=== PATIENT | female | born 1965 | race Caucasian/White ===

== ENCOUNTER 2018-01-29 16:57 | Emergency (ER) | payer BC ==
[2018-01-29] MEDS ORDERED: diphenhydrAMINE 50 MG/ML SDV IVPUSH ONE (17:34)
[2018-01-29] MEDS ORDERED: Sodium Chloride 0.9% 10 ML Syringe FLUSH PRN (17:34)
[2018-01-29] MEDS ORDERED: methylPREDNISolone Sodium Succinate 125 MG/2 ML SDV IVPUSH ONE (17:34)
--- NOTE | 2018-01-29 18:22 | EDM.PDOC ---
ED HPI GENERAL MEDICAL PROBLEM - General Chief Complaint: Allergic Reaction Stated Complaint: ALLERGY REACTION Time Seen by Provider: 01/29/18 17:22 - History of Present Illness INITIAL COMMENTS - FREE TEXT/NARRATIVE: Patient comes into the emergency Department today after developing sudden onset of hives. Patient states that she ate at a wrestling match. However it was a packed lunch from home. They stopped in [place] and had a snack is when she noticed the hives and itching. As it got closer to [place] her hives have progressed throughout her body and were extremely itchy. She presented to the emergency department for further medical management. She states that she is not allergic to anything that she is aware of nor has sensitive skin. She does not places her at a reaction like this before. Denies any fever, nausea, vomiting, diarrhea, or lightheadedness. Onset: Sudden - Related Data Allergies Allergy/AdvReac Type Severity Reaction Status Date / Time No Known Allergies Allergy Verified 01/29/18 17:21 Home Meds: Home Meds Levothyroxine 175 mcg PO ACBRK 01/29/18 [History] Pravastatin Sodium [Pravastatin (Pravachol)] 40 mg PO DAILY 01/29/18 [History] Topiramate [Topiramate] 2 tab PO BID 01/29/18 [History] metFORMIN HCl [Metformin HCl] 2 tab PO BID 01/29/18 [History] Past Medical History - Past Surgical History Musculoskeletal Surgical History: Reports: Knee Replacement Social & Family History - Tobacco Use Smoking Status *Q: Never Smoker - Alcohol Use Days Per Week of Alcohol Use: 1 Number of Drinks Per Day: 1 Total Drinks Per Week: 1 - Recreational Drug Use Recreational Drug Use: No ED ROS ALLERGIC REACTION - Review of Systems Review Of Systems: See Below Constitutional: Reports: No Symptoms HEENT: Reports: No Symptoms Respiratory: Reports: No Symptoms Cardiovascular: Reports: No Symptoms GI/Abdominal: Reports: No Symptoms : Reports: No Symptoms Skin: Reports: Urticaria Neurological: Reports: No Symptoms Psychiatric: Reports: No Symptoms ED EXAM GENERAL NO PERIP PULSE - Physical Exam Exam: See Below Exam Limited By: No Limitations General Appearance: Alert, WD/WN, No Apparent Distress Respiratory/Chest: No Respiratory Distress, Lungs Clear, Normal Breath Sounds, No Accessory Muscle Use, Chest Non-Tender Skin Exam: Rash (generalized uticaria throughout body. No facial swelling) Course - Vital Signs Last Recorded V/S: Last Vital Signs Temp 36.7 C 01/29/18 17:22 Pulse 98 01/29/18 18:27 Resp 16 01/29/18 18:27 BP 107/83 01/29/18 18:27 Pulse Ox 98 01/29/18 18:27 - Orders/Labs/Meds Orders: Active Orders 24 hr Category Date Time Status Sodium Chloride 0.9% [Saline Flush] Med 01/29/18 17:34 Active 10 ml FLUSH ASDIRECTED PRN Peripheral IV Insertion Adult [OM.PC] Routine Oth 01/29/18 17:34 Ordered Medication Orders Sodium Chloride (Saline Flush) 10 ml FLUSH ASDIRECTED PRN PRN Reason: Keep Vein Open Meds: Medications Generic Name Dose Route Start Last Admin Trade Name Freq PRN Reason Stop Dose Admin Sodium Chloride 10 ml 01/29/18 17:34 Saline Flush FLUSH ASDIRECTED PRN Keep Vein Open Discontinued Medications Generic Name Dose Route Start Last Admin Trade Name Freq PRN Reason Stop Dose Admin Diphenhydramine HCl 50 mg 01/29/18 17:34 01/29/18 17:51 Benadryl IVPUSH 01/29/18 17:35 50 mg ONETIME ONE Administration Methylprednisolone Sodium Succinate 125 mg 01/29/18 17:34 01/29/18 17:55 Solu-Medrol IVPUSH 01/29/18 17:35 125 mg ONETIME ONE Administration Departure - Departure Time of Disposition: 17:30 Disposition: Home, Self-Care 01 Condition: Good Clinical Impression: Hives of unknown origin Allergic reaction Qualifiers: Encounter type: initial encounter Qualified Code(s): T78.40XA - Allergy, unspecified, initial encounter - Discharge Information Instructions: Hives Forms: ED Department Discharge Additional Instructions: 1. Take Benadryl every 4 hours as needed for hives 2. Rest 3. He turn to the emergency department if shortness of breath or rash progresses 4. Follow up with PCP if not better within the next 3-4 days - My Orders Last 24 Hours: My Active Orders 01/29/18 17:34 Sodium Chloride 0.9% [Saline Flush] 10 ml FLUSH ASDIRECTED PRN Peripheral IV Insertion Adult [OM.PC] Routine - Assessment/Plan Last 24 Hours: My Active Orders 01/29/18 17:34 Sodium Chloride 0.9% [Saline Flush] 10 ml FLUSH ASDIRECTED PRN Peripheral IV Insertion Adult [OM.PC] Routine Plan: 1. Start IV in ER. 2. Solumedrol also provided in the 3. Benadryl as prescribed 4. Patient is advised to follow-up if rash progresses 5. Patient is advised to take [id number] Benadryl as needed for continued hives 6. Tylenol or ibuprofen as needed for any fever or pain
== END 2018-01-29 18:35 | disposition home or self-care (01) ==
LOC: VM.ED 16:57
DX: L50.0 Allergic urticaria (principal); Z79.899 Other long term (current) drug therapy; Z79.84 Long term (current) use of oral hypoglycemic drugs
CPT/HCPCS: 96374; 96375; 99284; J1200; J2930

== ENCOUNTER 2020-11-05 12:16 | Emergency (ER) | payer BC ==
[2020-11-05] MEDS ORDERED: LORazepam 1 MG Tab PO ONE (12:30)
[2020-11-05 13:11] LABS: CHLORIDE,CL 102 mmol/L (98-107); SODIUM,NA 137 mmol/L (136-145)
[2020-11-05 13:12] LABS: ANION GAP 14.9 mmol/L (10-20)
--- NOTE | 2020-11-05 13:19 | EDM.PDOC ---
ED HPI GENERAL MEDICAL PROBLEM - General Chief Complaint: Behavioral/Psych Stated Complaint: emotional breakdown Time Seen by Provider: 11/05/20 12:45 Source of Information: Reports: Patient History Limitations: Reports: No Limitations - History of Present Illness INITIAL COMMENTS - FREE TEXT/NARRATIVE: Pt. presents to ER with complaints of an "emotional breakdown". 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 She states that she is not currently on any psychiatric medications, previously had been on wellbutrin but states that she stopped this. She states that she has never been formally diagnosed with depression or anxiety. Denies any suicidal or homicidal ideation. Denies any cough, chest congestion, fever, or chills. No other worrisome signs or symptoms. Pt. is alert to time, date and place. She is able to recall her past medical history and the events of the day. Denies any nausea or vomiting. No chest pain or shortness of breath. She is accompanied to the hospital by a coworker. Onset: Today Location: Reports: Generalized - Related Data Allergies Allergy/AdvReac Type Severity Reaction Status Date / Time No Known Allergies Allergy Verified 01/29/18 17:21 Home Meds: Home Meds Levothyroxine 175 mcg PO ACBRK 01/29/18 [History] Pravastatin Sodium [Pravastatin (Pravachol)] 40 mg PO DAILY 01/29/18 [History] Levothyroxine 150 mcg PO ACBREAKFAST 11/05/20 [History] Past Medical History - Past Surgical History Musculoskeletal Surgical History: Reports: Knee Replacement ED ROS GENERAL - Review of Systems Review Of Systems: See Below Constitutional: Reports: No Symptoms HEENT: Reports: No Symptoms Respiratory: Reports: No Symptoms Cardiovascular: Reports: No Symptoms Endocrine: Reports: No Symptoms GI/Abdominal: Reports: No Symptoms : Reports: No Symptoms Musculoskeletal: Reports: No Symptoms Skin: Reports: No Symptoms Neurological: Reports: No Symptoms Psychiatric: Reports: Anxiety Hematologic/Lymphatic: Reports: No Symptoms Immunologic: Reports: No Symptoms ED EXAM, GENERAL - Physical Exam Exam: See Below Exam Limited By: No Limitations General Appearance: Alert, WD/WN, No Apparent Distress Eye Exam: Bilateral Eye: EOMI, PERRL Neck: Normal Inspection, Supple, Limited Range of Motion Respiratory/Chest: No Respiratory Distress, Lungs Clear, Normal Breath Sounds, No Accessory Muscle Use, Chest Non-Tender Cardiovascular: Normal Peripheral Pulses, Regular Rate, Rhythm, No Edema, No JVD Peripheral Pulses: 4+: Radial (L) Extremities: Normal Inspection, Normal Range of Motion, Non-Tender Neurological: Alert, Oriented, CN II-XII Intact, Normal Cognition, Normal Gait, Normal Reflexes, No Motor/Sensory Deficits Psychiatric: Normal Affect, Anxious, Tearful Skin Exam: Warm, Dry, Intact, No Rash Course - Vital Signs Last Recorded V/S: Last Vital Signs Temp 36.8 C 11/05/20 12:40 Pulse 107 H 11/05/20 12:40 Resp 18 11/05/20 12:40 BP 160/114 H 11/05/20 12:40 Pulse Ox 97 11/05/20 12:40 - Orders/Labs/Meds Orders: Active Orders 24 hr Category Date Time Status Blood Alcohol [ETHANOL BLOOD MEDICAL] [CHEM] Stat Lab 11/05/20 12:40 Received COMPREHENSIVE METABOLIC PN,CMP [CHEM] Stat Lab 11/05/20 12:40 Received TSH ULTRASENSITIVE [CHEM] Stat Lab 11/05/20 12:40 Received Labs: Laboratory Tests 11/05/20 Range/Units 12:40 WBC 7.0 (4.0-10.0) x10^3/uL RBC 4.76 (4.00-5.50) x10^6/uL Hgb 14.4 (12.0-16.0) g/dL Hct 42.8 (33.0-47.0) % MCV 89.9 (78.0-93.0) fL MCH 30.3 (26.0-32.0) pg MCHC 33.6 (32.0-36.0) g/dL RDW Coeff of [place]isha 12.3 (10.0-15.0) % Plt Count 307 (130-400) x10^3/uL Neut % (Auto) 75.3 (50.0-80.0) % Lymph % (Auto) 16.3 L (25.0-50.0) % [place] % (Auto) 8.0 (2.0-11.0) % Eos % (Auto) 0.3 (0.0-4.0) % Baso % (Auto) 0.1 L (0.2-1.2) % Meds: Medications Discontinued Medications Generic Name Dose Route Start Last Admin Trade Name Willy PRN Reason Stop Dose Admin Lorazepam 2 mg 11/05/20 12:30 11/05/20 12:44 Ativan PO 11/05/20 12:31 2 mg ONETIME ONE Administration Departure - Departure Time of Disposition: 13:22 Disposition: Home, Self-Care 01 Clinical Impression: Panic disorder, Anxiety - Discharge Information Instructions: Generalized Anxiety Disorder, Adult, Panic Attack, [id number], Lorazepam tablets Referrals: Gladis Harvey [facility] CLIPPER [Primary Care Provider] - Forms: ED Department Discharge Additional Instructions: Ativan 1mg 1/2 to 1 tablet every 4 hours as needed for anxiety. This medication will make you sleepy. Don't drive or operate machinery until you know how this medication makes you feel. Off work today and tomorrow (11-05-2020 and 11-06-2020) Follow-up with [facility] within the next 5 days. I think you would benefit from being on a medication you take daily, and this should be prescribed by your primary care provider. [facility] has services for anxiety and depression available as well. [phone]. There are other services available for counselling locally as well: [facility] [phone] [facility] [phone] [facility] [phone] Both [facility] and [facility] meet with patients in the [place] behind the hospital Return to ER or call the crisis line at [phone] if you feel you want to hurt yourself or someone else. Sepsis Event Note (ED) - Evaluation Sepsis Screening Result: No Definite Risk - Focused Exam Vital Signs: Vital Signs Temp Pulse Resp BP Pulse Ox 11/05/20 12:40 36.8 C 107 H 18 160/114 H 97 - My Orders Last 24 Hours: My Active Orders 11/05/20 12:40 Blood Alcohol [ETHANOL BLOOD MEDICAL] [CHEM] Stat COMPREHENSIVE METABOLIC PN,CMP [CHEM] Stat TSH ULTRASENSITIVE [CHEM] Stat - Assessment/Plan Last 24 Hours: My Active Orders 11/05/20 12:40 Blood Alcohol [ETHANOL BLOOD MEDICAL] [CHEM] Stat COMPREHENSIVE METABOLIC PN,CMP [CHEM] Stat TSH ULTRASENSITIVE [CHEM] Stat Plan: Ativan 1mg 1/2 to 1 tablet every 4 hours as needed for anxiety. This medication will make you sleepy. Don't drive or operate machinery until you know how this medication makes you feel. Off work today and tomorrow (11-05-2020 and 11-06-2020) Follow-up with [facility] within the next 5 days. I think you would benefit from being on a medication you take daily, and this should be prescribed by your primary care provider. [facility] has services for anxiety and depression available as well. [phone]. There are other services available for counselling locally as well: [facility] [phone] [facility] [phone] [facility] [phone] Both [facility] and [facility] meet with patients in the [facility] behind the hospital Return to ER or call the crisis line at [phone] if you feel you want to hurt yourself or someone else.
== END 2020-11-05 13:36 | disposition home or self-care (01) ==
LOC: VM.ED 12:16
DX: F41.0 Panic disorder [episodic paroxysmal anxiety] (principal)
CPT/HCPCS: 36415; 80053; 80307; 84443; 85025; 99283; 99284; A9270-GY

== ENCOUNTER 2023-02-23 20:23 | Emergency (ER) | payer BC ==
[2023-02-23] MEDS ORDERED: Acetaminophen/HYDROcodone 325-10 MG Tab PO ONE (20:34)
== END 2023-02-23 21:35 | disposition short-term general hospital (02) ==
LOC: VM.ED 20:23
DX: S52.502A Unspecified fracture of the lower end of left radius, initial encounter for closed fracture (principal); W00.0XXA Fall on same level due to ice and snow, initial encounter
CPT/HCPCS: 29125; 73110-LT; 99284; A9270-GY